=== PATIENT | female | born 1965 | race Caucasian/White ===

== ENCOUNTER 2018-12-31 13:46 | Outpatient (CLI) | payer BC ==
[~2018-12-31 13:46] MED LIST: Gadobenate Dimeglumine 529 MG/1 ML (20ML VIAL) ONE
--- NOTE | 2018-12-31 16:57 | MRI ---
BRAIN MRI WITH AND WITHOUT CONTRAST: Indication: History of meningioma. Comparison: 12-17-16 FINDINGS: Re-demonstration of abnormal extraaxial dural based enhancement in a mass like configuration centered at the left cerebellar pontine angle cistern. This does encase a portion of the traversing left skul l base carotid flow void. Mass is traversed by dural sleeve underlying the medial left temporal lobe and previous measurements were acquired from the medial aspect. When measuring the entirety of the ar ea of enhancement, this measured approximately 3 cm anterior-posterior x 2.3 cm transverse x 2.3 cm A P. Measuring in a similar location to prior exam 12-17-16, this is stable in volume. No new pathologic intraaxial enhancement. No midline shift. Ventricular system is normal in size. Exa m is otherwise similar. IMPRESSION: 1. Stable extraaxial mass centered at the left CP angle cistern with a prominent dural base, most con sistent with a meningioma. 2. Previously mentioned enhancement about the posterior, findings in the clavus, as well as the left IAC are re-demonstrated. POS: [facility]
== END 2018-12-31 13:47 | disposition home or self-care (01) ==
LOC: TBSIIMAG 13:46
PROVIDERS: ATTEND Neurological Surgery
DX: D32.9 Benign neoplasm of meninges, unspecified (principal); G93.89 Other specified disorders of brain
CPT/HCPCS: 70553

== ENCOUNTER 2020-06-09 13:37 | Outpatient (CLI) | payer BC ==
[~2020-06-09 13:37] MED LIST changes: -Gadobenate Dimeglumine 529 MG/1 ML (20ML VIAL) ONE; +Magnevist 469MG/ML 20 ML VIAL ONE
--- NOTE | 2020-06-09 15:00 | MRI ---
MRI BRAIN WITH AND WITHOUT CONTRAST: DATE: 06/09/2020 HISTORY: 55-year-old female D 32.9, & D32.0, benign neoplasm of meninges, unspecified, and benign neoplasm of cerebral meninges. COMPARISON: 08/31/2011 and 12/31/2018 TECHNIQUE: Multiplanar, multisequence MRI of the brain performed pre- and post-IV injection of gadolinium based contrast agent. FINDINGS: Homogeneously enhancing mass with component in left cerebellopontine angle cistern, chronically inden ting the left side of the ronnie. It involves the dura of the left petrous ridge, partially fills left Meckel's cave, and encroaches upon the posterior edge of the left cavernous sinus, and left post erior edge of clivus. In the middle cranial fossa medially, it chronically mildly superiorly displaces the left mesial temporal lobe. It has enhancing dural tails along the left tentorium cerebe lli, left petrous ridge, and extending into the left internal auditory canal. The mass is difficult to measure because of its complex shape and some difficulty in delineating boun martina between the dural tail and main tumor, but it measures approximately 2.3 x 2.3 x 2.7 cm. It has not changed significantly since 08/31/2011. No major intra-axial signal abnormality, obstructive hydrocephalus, mass effect, midline shift, or ex tra-axial fluid collection. No major interval change overall. IMPRESSION: Meningioma involving the left prepontine cistern and cerebellopontine angle cistern, and left petrous bone, unchanged since 2010.
== END 2020-06-09 13:38 | disposition home or self-care (01) ==
LOC: TBSIIMAG 13:37
PROVIDERS: ATTEND Neurological Surgery
DX: D32.0 Benign neoplasm of cerebral meninges (principal)
CPT/HCPCS: 70553; A9579

== ENCOUNTER 2021-07-27 10:06 | Outpatient (CLI) | payer BC | END 2021-07-27 10:07 | disposition home or self-care (01) | LOC: TBSIIMAG 10:06 | PROVIDERS: ATTEND Neurological Surgery | DX: D32.9 Benign neoplasm of meninges, unspecified (principal) | CPT/HCPCS: 70553 ==

== ENCOUNTER 2024-10-23 12:39 | Outpatient (CLI) | payer BC | END 2024-10-23 12:40 | disposition home or self-care (01) | PROVIDERS: ATTEND Family Medicine | DX: R00.2 Palpitations (principal) | CPT/HCPCS: 93225; 93226 ==